=== PATIENT | female | born 1970 | race Caucasian/White ===

== ENCOUNTER 2017-11-24 10:03 | Day surgery (SDC) | payer BC ==
[~2017-11-24] VITALS: Ht 154.9 cm; Wt 79.3 kg
[~2017-11-24 10:03] MED LIST: ALLOPURINOL100 MG PO; CALCIUM 600 +1 EAC9 PO; CIPRO250 MG PO; COQ-10100 MG PO; FERROUS SULFAT325 MG PO; GENTAMICIN SULF30 G1 TP; LASIX20 MG PO; MYFORTIC360 MG PO; NABI650T PO; NORVASC5 MG PO; PRILOSEC20 MG PO; PRINIVIL20 MG PO; PROGRAF1 MG PO; ROCALTROL0.25 MCG PO; TIROSINT75 MCG PO; VITAMIN D2000 UNI1 PO; XANAX0.25 MG PO; ZOCOR10 MG PO
[2017-11-24 10:27] VITALS: BP 129/76
[2017-11-24 10:36] LABS: HEMATOCRIT 31.3 % (36.0-46.0); HEMOGLOBIN 10.3 G/DL (11.9-15.5); MCH 31.6 PG (29.0-34.0); MCHC 32.9 G/DL (30.0-36.0); PLATELET COUNT 212 K/uL (156-360); RBC DIS.WIDTH-CV 12.3 % (11.8-14.6); RBC DIS.WIDTH-SD 43.1 % (39-53); RED BLOOD COUNT 3.26 M/uL (3.80-5.20); WHITE BLOOD COUNT 9.2 K/uL (4.1-10.2)
[2017-11-24 10:59] LABS: CHLORIDE 98 MEQ/L (99-109); GFR ESTIMATE (CALCULATED) 3 mL/min/; GLUCOSE 94 mg/dL (70-99); POTASSIUM 4.8 MEQ/L (3.7-5.4); SODIUM 137 MEQ/L (136-147); UREA NITROGEN (BUN) 54 mg/dL (9-23)
[2017-11-24] MEDS ORDERED: ULTRAM50 MG PO (14:40)
[2017-11-24] MEDS ORDERED: DIFLUCAN100 MG PO (14:40)
[2017-11-24 15:44] VITALS: BP 136/60
[2017-11-24 16:31] VITALS: BP 121/68
== END 2017-11-24 16:30 | disposition home or self-care (01) ==
LOC: SDC 10:03
PROVIDERS: Surgery
DX: T85.71XA Infection and inflammatory reaction due to peritoneal dialysis catheter, initial encounter (principal); I12.0 Hypertensive chronic kidney disease with stage 5 chronic kidney disease or end stage renal disease; N18.6 End stage renal disease; Z99.2 Dependence on renal dialysis; E78.00 Pure hypercholesterolemia, unspecified
CPT/HCPCS: 80048; 82948; 85027; 87070; 87075; 87102; 87205; 87641; 93005; C1750; J1450; J1644; J2250; J2405; J3010

== ENCOUNTER 2017-12-06 14:00 | Day surgery (SDC) | payer BC ==
[~2017-12-06] VITALS: Ht 154.9 cm; Wt 78.4 kg
[~2017-12-06 14:00] MED LIST changes: +DIFLUCAN100 MG PO; +ULTRAM50 MG PO
[2017-12-06 14:43] VITALS: BP 172/81
[2017-12-06 14:44] LABS: BASOPHIL (%) 0.3 % (0-1); EOSINOPHIL (%) 2.8 % (0-5); EOSINOPHIL COUNT 0.2 K/uL (0-0.3); HEMATOCRIT 26.2 % (36.0-46.0); IMMATURE GRANULOCYTE (%) 0.4 % (0.0-0.7); LYMPHOCYTE (%) 14.4 % (15-42); LYMPHOCYTE COUNT 1.1 K/uL (1.0-2.8); MCH 31.8 PG (29.0-34.0); MCHC 34.4 G/DL (30.0-36.0); MCV 92.6 FL (83-99); MONOCYTE (%) 7.8 % (3-12); MONOCYTE COUNT 0.6 K/uL (0-0.8); NEUTROPHIL (%) 74.3 % (45-76); NEUTROPHIL COUNT 5.9 K/uL (1.8-6.4); PLATELET COUNT 186 K/uL (156-360); RBC DIS.WIDTH-CV 11.8 % (11.8-14.6); RBC DIS.WIDTH-SD 40.1 % (39-53); RED BLOOD COUNT 2.83 M/uL (3.80-5.20); WHITE BLOOD COUNT 7.9 K/uL (4.1-10.2)
[2017-12-06 14:54] LABS: CHLORIDE 96 mEq/L (99-109); POTASSIUM 4.5 mEq/L (3.7-5.4); SODIUM 131 mEq/L (136-147)
[2017-12-06 14:55] LABS: GLUCOSE 85 mg/dL (70-99)
[2017-12-06 14:59] LABS: CREATININE 22.3 mg/dL (0.6-1.3); GFR ESTIMATE (CALCULATED) 2 mL/min/
[2017-12-06 15:00] LABS: UREA NITROGEN (BUN) 99 mg/dL (9-23)
[2017-12-06] MEDS ORDERED: NORCO 7.5/321 TABLET PO (17:01)
[2017-12-06 18:40] VITALS: BP 168/72
[2017-12-06 20:00] VITALS: BP 140/80
== END 2017-12-06 20:00 | disposition home or self-care (01) ==
LOC: SDC 14:00
PROVIDERS: Surgery
PROC: 0WPG03Z Removal of Infusion Device from Peritoneal Cavity, Open Approach (ICD-10-PCS; principal; 2017-12-06)
DX: T85.71XA Infection and inflammatory reaction due to peritoneal dialysis catheter, initial encounter (principal); Y83.1 Surgical operation with implant of artificial internal device as the cause of abnormal reaction of the patient, or of later complication, without mention of misadventure at the time of the procedure; I12.0 Hypertensive chronic kidney disease with stage 5 chronic kidney disease or end stage renal disease; N18.6 End stage renal disease; Z99.2 Dependence on renal dialysis; E78.00 Pure hypercholesterolemia, unspecified; E03.9 Hypothyroidism, unspecified; Z88.0 Allergy status to penicillin; Z88.2 Allergy status to sulfonamides; Z88.5 Allergy status to narcotic agent
CPT/HCPCS: 80048; 85025; 87070; 87075; 87205; J0690; J1170; J3010; S0020